=== PATIENT | female | born 2005 | race African-American/Black ===

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

== ENCOUNTER 2024-01-21 07:08 | Outpatient (CLI) | payer BC ==
--- NOTE | 2024-01-21 13:31 | Ultrasound Report ---
PROCEDURE: Pelvic Complete INDICATIONS: EXCESSIVE AND FREQUENT MENSTRATION TECHNIQUE: Real-time transabdominal scanning was performed of the pelvic organs, with image documentation. COMPARISON: None FINDINGS: Evaluation is limited on transabdominal view. Uterus: Uterus is anteverted and normal in size at 7.9 x 3.4 x 5 cm. The myometrium is homogeneous. The endometrium measures 12.7 mm in combined thickness. Cervix and vagina are within normal limits . Ovaries: The right ovary measures 3.8 x 2.9 x 4.3 cm, with a calculated ovarian volume of 24.8 cc. The left ovary measures 3.2 x 2.6 x 2.8 cm, with a calculated ovarian volume of 12.2 cc. Echogenic ma ss in the right ovary measuring 3 x 2.4 x 3 cm. Less than 12 follicles can be seen in each ovary. No cystic lesions measuring greater than 3 cm. Other: No free pelvic fluid. IMPRESSION: Evaluation is limited on transabdominal view. 1.Normal sonographic appearance of the uterus. Endometrial thickness is 12.7 mm. 2.Echogenic mass in the right ovary measuring 3 x 2.4 x 3 cm is nonspecific and could represent a loly moid. 3.Normal sonographic appearance of the left ovary. Reviewed by: Maximino Magallnaes MD on 01/21/2024 1:30 PM PDT Approved by: Maximino Magallanes MD on 01/21/2024 1:30 PM PDT Station ID: [id number]
== END 2024-01-21 07:09 | disposition home or self-care (01) ==
LOC: DI 07:08
PROVIDERS: ATTEND Naturopath
DX: N83.9 Noninflammatory disorder of ovary, fallopian tube and broad ligament, unspecified (principal); N92.0 Excessive and frequent menstruation with regular cycle

== ENCOUNTER 2024-04-21 08:00 | Outpatient (CLI) | payer BC | END 2024-04-21 23:59 | disposition home or self-care (01) | LOC: LAB.S 08:00 | PROVIDERS: ATTEND Physician Assistant | DX: J02.9 Acute pharyngitis, unspecified (principal) | CPT/HCPCS: 87070 ==